=== PATIENT | male | born 1945 | race Caucasian/White ===

== ENCOUNTER 2019-04-17 05:50 | Day surgery (SDC) | payer OTHER, MEDICAID ==
[~2019-04-17] VITALS: Ht 165.1 cm; Wt 70.3 kg
[2019-04-17] MEDS ORDERED: CEFAZOLIN SOD 2 GM in D5W 50 ML IV ONE (07:00)
[2019-04-17] MEDS ORDERED: LR 1,000 ML IV SCH (09:04)
[2019-04-17] MEDS ORDERED: MORPHINE 4 MG/ML INJ. SYRINGE IVP PRN ×3 (09:15)
[2019-04-17] MEDS ORDERED: METOCLOPRAMIDE HCL 10 MG/2 ML VIAL IVP PRN (09:15)
[2019-04-17] MEDS ORDERED: ROCURONIUM BROMIDE 10 MG/ML (ZEMURON) ONE (10:35)
[2019-04-17] MEDS ORDERED: BACITRACIN ZINC 15 GM TOPICAL OINTMENT TP ONE (10:35)
[2019-04-17] MEDS ORDERED: MIDAZOLAM HCL 5 MG/ML VIAL (VERSED) IV ONE (10:35)
[2019-04-17] MEDS ORDERED: NS IRRIG SOLN 1000 ML IR ONE (10:35)
[2019-04-17] MEDS ORDERED: LR 1,000 ML IV.SOLN IV ONE (10:35)
[2019-04-17] MEDS ORDERED: ONDANSETRON HCL 4 MG/2 ML VIAL ONE (10:35)
[2019-04-17] MEDS ORDERED: SEVOFLURANE 15 MIN GAS INH ONE (10:35)
[2019-04-17] MEDS ORDERED: PROPOFOL 200MG/ 20ML VIAL (DIPRIVAN) IV ONE (10:35)
[2019-04-17] MEDS ORDERED: fentaNYL CITRATE/PF 100 MCG/2 ML AMP ONE (10:35)
[2019-04-17] MEDS ORDERED: ONDANSETRON 4 MG ODT TAB PO PRN (11:30)
[2019-04-17] MEDS ORDERED: ACETAMINOPHEN 500 MG TABLET PO PRN (11:30)
[2019-04-17] MEDS ORDERED: HYDROcodone/ACETAMIN 5-325 MG TAB (NORCO/ VICODIN) PO PRN (11:30)
[2019-04-17 12:19] VITALS: BP_SYST 130
== END 2019-04-17 12:26 | disposition home or self-care (01) ==
LOC: SDS 05:50 → SMU 05:50 → SDS 12:26
PROVIDERS: ATTEND Otolaryngology
DX: C44.222 Squamous cell carcinoma of skin of right ear and external auricular canal (principal); I10 Essential (primary) hypertension; M19.90 Unspecified osteoarthritis, unspecified site; E78.00 Pure hypercholesterolemia, unspecified; Z87.891 Personal history of nicotine dependence; Z98.890 Other specified postprocedural states
CPT/HCPCS: 14060; 88305; 88331; A4649; J0690; J2250; J2405; J2704; J3010; J7060; J7120